=== PATIENT | male | born 1985 | race Caucasian/White ===

== ENCOUNTER 2024-01-14 14:53 | Emergency (ER) | payer OTHER, SELFPAY ==
[2024-01-14 14:57] VITALS: BP 166/99
--- NOTE | 2024-01-14 16:36 | ED.GENMED ---
History of Present Illness
<Lizbeth Turk PA-C - Last Filed: 01/14/24 21:39>
General
Chief Complaint: Rectal Bleeding
Source: patient
Exam Limitations: none
Time Seen by Provider: 01/14/24 16:35
Nursing documentation reviewed up to this point in time: agreed with
History of Present Illness
History of Present Illness:
38-year-old male presents emergency department today with concerns of rectal bleeding for the past 2 hours. He states that he started to have rectal pain the past few days. Patient notes that he was straining with bowel movements a few days ago.
Patient states that he was at home today and when he went to use the bathroom, he noticed that his stool appeared darker. Then, later in the day, he has some drops of blood in bowl as well as on the toilet paper. This is never happened to him
before. Patient states at home, he has self rectal exam and noticed a small bump externally. Patient denies any dizziness, lightheadedness, chest pain, shortness of breath. Patient has had any abdominal pain. Patient denies any daily NSAID use,
denies any iron supplementation or Pepto-Bismol use. Patient does not take any blood thinners, does not take any antiplatelet agents
Review of Systems
<Lizbeth Turk PA-C - Last Filed: 01/14/24 21:39>
Review of Systems
All Other Systems: ROS reviewed and negative except as documented in HPI and ROS
Phy Exam
<Lizbeth Turk PA-C - Last Filed: 01/14/24 21:39>
Physical Exam
Physical Exam:
General: Patient is well appearing and in no acute distress; non-toxic
Skin: Warm and dry, no rashes or lesions
Head: Normocephalic, atraumatic
Eyes: Sclera non-icteric. EOMs intact. PERRLA.
Cardiac: Regular rate and rhythm, no murmurs
Pulm: Normal respiratory effort
Abdomen: No abdominal tenderness to palpation, no palpable abdominal masses
Genitourinary: Actively bleeding thrombosed hemorrhoid
Neuro: CN II-XII intact, no focal neurologic deficits.
Psychiatric: Appropriate mood and affect.
Course
<Lizbeth Turk PA-C - Last Filed: 01/14/24 21:39>
Orders/Labs/Results
Orders:
Orders
01/14/24 16:51
Type+Screen Urgent
Complete Blood Count/With Diff Urgent
Comprehensive Metabolic Panel Urgent
01/14/24 17:11
ABO2 Urgent
BBK Wristband Number:
Associate notified that ABO2 has been ordered: [id number]
Date: 01/14/24
Time: 17:06
Jeweler Apprentice ID: [id number]
01/14/24 16:51
01/14/24 16:51
Vital Signs
Initial and Last Documented VS:
Initial Vital Signs
Temp Pulse Resp BP Pulse Ox
97.8 F 82 18 166/99 98
01/14/24 14:57 01/14/24 14:57 01/14/24 14:57 01/14/24 14:57 01/14/24 14:57
Last Documented Vital Signs
Temp Pulse Resp BP Pulse Ox
97.8 F 82 18 123/79 96
01/14/24 14:57 01/14/24 14:57 01/14/24 14:57 01/14/24 18:00 01/14/24 18:00
<Clovis Ruiz MD - Last Filed: 01/14/24 18:20>
Orders/Labs/Results
Orders:
Orders
01/14/24 16:51
Type+Screen Urgent
Complete Blood Count/With Diff Urgent
Comprehensive Metabolic Panel Urgent
01/14/24 17:11
ABO2 Urgent
BBK Wristband Number:
Associate notified that ABO2 has been ordered: [id number]
Date: 01/14/24
Time: 17:06
Jeweler Apprentice ID: [id number]
01/14/24 16:51
01/14/24 16:51
Vital Signs
Initial and Last Documented VS:
Initial Vital Signs
Temp Pulse Resp BP Pulse Ox
97.8 F 82 18 166/99 98
01/14/24 14:57 01/14/24 14:57 01/14/24 14:57 01/14/24 14:57 01/14/24 14:57
Last Documented Vital Signs
Temp Pulse Resp BP Pulse Ox
97.8 F 82 18 123/79 96
01/14/24 14:57 01/14/24 14:57 01/14/24 14:57 01/14/24 18:00 01/14/24 18:00
Procedures
<Lizbeth Turk PA-C - Last Filed: 01/14/24 21:39>
Other
Indication for procedure:: Rectal pain and bleeding, thrombosed external hemorrhoid
Procedure completed by: Dr. Joseph ALANIZ, Lizbeth Turk PA-C
Additional Procedure:
Patient consented verbally for this procedure. Hemorrhoid and surrounding area was cleansed with Betadine. Sterile field created. 1% lidocaine with epinephrine was injected over the surface of the hemorrhoid and a small incision was made with a
15 blade. 1 cm thrombus was removed from hemorrhoid. Gauze and pads were placed to help with pressure and stop bleeding. Patient tolerated procedure well.
<Lizbeth Turk PA-C - Last Filed: 01/14/24 21:39>
MDM/Problems Addressed
Differential Diagnosis Includes:
See below
MDM/Problems Addressed:
NUMBER AND COMPLEXITY OF PROBLEMS ADDRESSED AT THE ENCOUNTER
� Chronic conditions affecting care: n/a
� Acute Exacerbation and/or Progression of Chronic Illness: n/a
� Differential Diagnosis includes: Diverticular bleeding, anal fissure, anal tear, bleeding hemorrhoid, gastritis/duodenitis
AMOUNT AND/OR COMPLEXITY OF DATA TO BE REVIEWED AND ANALYZED
� I performed an independent evaluation of and my interpretation is:
Laboratory Studies: CBC unremarkable, H&H stable
Other:
� Review of other/old records: Reviewed [facility], no previous ER physician documentation to review, no discharge summaries in [facility] to review
� Clinical information was obtained by an independent historian:
� Prescriptions/Medications Considered but not given: n/a
RISK OF COMPLICATIONS AND/OR MORBIDITY OR MORTALITY OF PATIENT MANAGEMENT
� Social determinants of health affecting care: n/a
� Discussion with other providers: ER attending
� Escalation of care including admission/observation vs risk of discharge considered:
38-year-old male presents emergency department today with few days of rectal pain and a few hours of rectal bleeding. On physical exam, he has a thrombosed external hemorrhoid does actively bleeding. Procedure was performed to have thrombus
removed, patient tolerated procedure well, gauze was applied to the area. Instructed patient to use sitz bath's for the next few days as well as prescription topical hydrocortisone cream. Did give patient referral for GI should he have ongoing
issues. Discussed follow-up with primary, lab work shows a normal hemoglobin, his CMP is unremarkable. Patient stable for discharge
<Lizbeth Turk PA-C - Last Filed: 01/14/24 21:39>
*Critical Care Note
Total Time (30-74mins, 75-104mins- exclusive of procedures): Not Applicable
ED Attending Note
<Lizbeth Turk PA-C - Last Filed: 01/14/24 21:39>
-
Portions of this chart may have been created with voice recognition software.� Occasional wrong word or��sound alike� substitutions may have occurred due to the inherent limitations of voice recognition software.
<Clovis Ruiz MD - Last Filed: 01/14/24 18:20>
ED Attending Note
Patient seen and examined by attending physician: Yes
I performed the substantive portion of visit, reviewed & personally made and approve the management plan that is documented in note by myself or SHANNAN.: Yes
ED Attending Note:
Painful bleeding rectally x 3 to 4 hours. No abdominal pain no fever chills. No pustular drainage. Normal bowel movement.
On exam patient has a thrombosed hemorrhoid with a small clot not actively bleeding.
Sterilely removed the thrombosed hemorrhoid. No severe bleeding medically stable discharged to follow-up
Discharge Plan
Departure
Patient Disposition: Home (Routine Discharge)
Date of Disposition: 01/14/24
Time of Disposition: 17:50
Patient with high blood pressure during this ER visit?: Yes
Discharge Problem:
External hemorrhoid, thrombosed
Instructions: Hemorrhoids ED, BLOOD PRESSURE
Prescriptions:
New
hydrocortisone [Anusol-HC] 2.5 % cream with perineal applicator
1 applic OR BID PRN (Reason: Pain) Qty: 30 0RF
Referrals:
Bing Wan MD [Active] - Call in 1-3 days for appt
Gisselle Buck CRNP [Family Provider] -
Activity Restrictions/Additional Instructions:
Today in the ER you had a thrombosis removed from your hemorrhoid. You can expect continued bleeding from this procedure, however now that the clot is removed, it should resolve faster on its own.
Anusol-HC cream has been sent to your pharmacy. You can apply it to the area twice daily a needed. You can also utilize sitz baths to help soothe the area. I highly recommend also taking miralax for the next few weeks to help keep the stools soft to
help ease pain.
PLEASE RETURN TO THE EMERGENCY DEPARTMENT SHOULD YOU DEVELOP DIZZINESS, LIGHTHEADEDNESS, PALLOR, SYNCOPAL EPISODES/FAINTING SPELLS, CHEST PAIN, SHORTNESS OF BREATH, WEAKNESS, OR ANY OTHER SIGNS OR SYMPTOMS CONCERNING TO YOU.
Interventions
Interventions:
*Risk Screen - Suicide Last Done: 01/14/24 14:57
*General Assessment Last Done: 01/14/24 14:57
*Neglect/Abuse Screening Last Done: 01/14/24 14:57
*ED COVID-19 Vaccine History Last Done: 01/14/24 16:59
*Nursing Disposition Last Done: 01/14/24 18:06
EQ-Getaph-Dupslufiog Assessment Last Done: 01/14/24 16:19
ED- Cardiac Assessment Last Done: 01/14/24 16:19
ED- Pulmonary Assessment Last Done: 01/14/24 16:19
Discharge Date and Time
Discharge Date/Time: 01/14/24 18:06
Print Language: GUYANESE
[2024-01-14 16:59] VITALS: BMI 45.3
[2024-01-14 17:00] VITALS: BP 155/96
[2024-01-14 17:03] LABS: % Basophils 0.7 % (0-2); % Eosinophils 1.6 % (0-6); % Immature Granulocytes 0.3 % (0-0.5); % Lymphocytes 23.5 % (20.5-51.1); % Monocytes 7.2 % (1.7-9.3); % Neutrophils 66.7 % (42.2-75.2); Absolute Basophils 0.1 10^3/uL (0-0.2); Absolute Eosinophils 0.1 10^3/uL (0-0.7); Absolute Lymphocytes 1.8 10^3/uL (1.2-3.4); Absolute Monocytes 0.6 10^3/uL (0.1-0.6); Absolute Neutrophils 5.1 10^3/uL (1.4-6.5); Hematocrit 42.5 % (39.0-52.0); Hemoglobin 14.8 g/dL (13.0-18.0); Mean Corp Hgb Conc. 34.8 g/dL (33.0-37.0); Mean Corpuscular Hgb 29.5 pg (27.0-31.0); Mean Corpuscular Volume 84.8 fL (80.0-94.0); Nucleated Red Blood Cells % 0 % (-); Platelet Count 203 10^3/uL (130-400); Red Blood Cell Count 5.01 10^6/uL (4.70-6.10); Red Cell Dist. Width 12.6 % (11.5-14.5); White Blood Cell Count 7.7 10^3/uL (4.8-10.8)
[2024-01-14 17:27] LABS: ALT (SGPT) 32 U/L (0-50); AST (SGOT) 26 U/L (17-59); Albumin 4.2 g/dl (3.5-5.0); Alkaline Phosphatase 72 U/L (38-126); Blood Urea Nitrogen 10 mg/dl (9-20); Calcium 9.5 mg/dl (8.4-10.2); Carbon Dioxide 29 mmol/L (22-30); Chloride 102 mmol/L (98-107); Estimated Creatinine Clearance > 125 ml/min; Glucose 95 mg/dl (70-99); Potassium 4.4 mmol/L (3.5-5.1); Sodium 139 mmol/L (135-145); Total Bilirubin 0.7 mg/dl (0.2-1.3); Total Protein 7.2 g/dl (6.3-8.2); eGFR > 60.00
[2024-01-14 18:00] VITALS: BP 123/79
== END 2024-01-14 18:06 | disposition home or self-care (01) ==
LOC: EMR 14:53
PROVIDERS: Physician Assistant; EMERGENCY PHYSICIAN Emergency Medicine; FAMILY PHYSICIAN Nurse Practitioner Adult Health
DX: K64.5 Perianal venous thrombosis (principal)
CPT/HCPCS: 46083; 99283; 80053; 85025; 86850; 86900; 86901